=== PATIENT | male | born 1960 | race Two or more races ===

== ENCOUNTER 2021-02-24 13:38 | Day surgery (SDC) | payer OTHER ==
[2021-02-22 11:09] LABS: BASOPHILS % (AUTO) 1 % (0-1); EOSINOPHILS % (AUTO) 3 % (1-7); LYMPHOCYTES % (AUTO) 26 % (22-44); MEAN CORPUSCULAR HGB CONC 34.5 g/dL (33.2-36.2); MONOCYTES % (AUTO) 11 % (2-9); NEUTROPHILS % (AUTO) 59 % (42-75); PLATELET COUNT 180 x10^3/uL (130-400); RED BLOOD COUNT 5.19 x10^6/uL (4.38-5.82); RED CELL DISTRIBUTION WIDTH 12.6 % (9.4-14.8)
[2021-02-22 11:21] LABS: ALANINE AMINOTRANSFERASE 223 U/L (12-78); ALBUMIN 4.5 g/dL (3.4-5.0); ANION GAP 4 mmol/L (5-15); CALCIUM 10.2 mg/dL (8.5-10.1); CHLORIDE 104 mmol/L (98-107); CREATININE 1.07 mg/dL (0.7-1.3)
[2021-02-22 11:23] LABS: ALKALINE PHOSPHATASE 80 U/L (45-117); BILIRUBIN,TOTAL 0.8 mg/dL (0.2-1.0); TOTAL PROTEIN 7.9 g/dL (6.4-8.2)
[2021-02-22 11:30] LABS: MD NO
[~2021-02-24] VITALS: Ht 175.3 cm; Wt 115.8 kg
[~2021-02-24 13:38] MED LIST: AMLO10TA4 PO; ASPI81TA45 PO; LOSA1TAB19 PO; METO25TA91 PO; OMEP-110 PO; Vitamin D3 PO
[2021-02-24] MEDS ORDERED: CHLORHEXIDINE 15 ML UDC PO ONE (14:00)
[2021-02-24] MEDS ORDERED: LACTATED RINGERS 1,000 ML IV SCH (14:00)
[2021-02-24 14:01] VITALS: BP 141/97
[2021-02-24] MEDS ORDERED: BUPIVACAINE/PF 0.5% ONE (15:33)
[2021-02-24] MEDS ORDERED: EPINEPHRINE 1 MG/ML, 1ML ONE (15:33)
[2021-02-24] MEDS ORDERED: MIDAZOLAM 1 MG/ML, 2ML ONE (15:37)
[2021-02-24] MEDS ORDERED: FENTANYL PF 100 MCG/2ML ONE (15:37)
[2021-02-24] MEDS ORDERED: BACITRACIN 50,000 UNIT ONE (15:51)
[2021-02-24] MEDS ORDERED: HYDR-2214 PO (16:12)
[2021-02-24] MEDS ORDERED: PROMETHAZINE 25 MG/ML, 1ML IVPush PRN (17:00)
[2021-02-24] MEDS ORDERED: ONDANSETRON 2MG/ML, 2ML IVPush PRN (17:00)
[2021-02-24] MEDS ORDERED: FENTANYL PF 100 MCG/2ML IV PRN (17:00)
[2021-02-24] MEDS ORDERED: OXYcodone 5 MG/5 ML ORAL.SOL UDC PO PRN (17:00)
[2021-02-24] MEDS ORDERED: HYDROmorphone 1 MG/ML, 1ML INJ IVPush PRN (17:00)
[2021-02-24] MEDS ORDERED: HYDROcodone/APAP 7.5-325MG/15ML UDC PO PRN (17:00)
[2021-02-24] MEDS ORDERED: MEPERIDINE/PF 25MG/0.5ML IVPush PRN (17:00)
[2021-02-24] MEDS ORDERED: ALBUTEROL HFA 90 MCG/SPRAY INH ONE (17:30)
== END 2021-02-24 19:45 | disposition home or self-care (01) ==
LOC: OR 13:38 → EDSEX 15:30 → OR 19:45
PROVIDERS: ATTEND Surgery
DX: K42.0 Umbilical hernia with obstruction, without gangrene (principal); I10 Essential (primary) hypertension; E78.5 Hyperlipidemia, unspecified; E66.9 Obesity, unspecified; F17.210 Nicotine dependence, cigarettes, uncomplicated; Z20.822 Contact with and (suspected) exposure to COVID-19; Z79.899 Other long term (current) drug therapy
CPT/HCPCS: 36415; 49587; 80053; 85025; 93005; C1781; J0171; J2250; J3010; J7120; U0003